=== PATIENT | male | born 1965 | race Caucasian/White ===

== ENCOUNTER 2017-11-12 14:01 | Emergency (ER) | payer SELFPAY ==
[~2017-11-12 14:01] MED LIST: Iopamidol 370 76% 100 ML VIAL ONE
[2017-11-12 14:46] LABS: #Basophils 0.1 thou/uL (0.0-0.2); #Eosinphils 0.4 thou/uL (0.0-0.7); #Lymphocytes 1.5 thou/uL (1.20-3.40); #Monocytes 0.4 thou/uL (0.11-0.59); #Neutrophils 3.2 thou/uL (1.40-6.50); %Eosinophils 7.1 % (0.0-10.0); %Lymphocytes 26.7 % (21.0-51.0); %Monocytes 6.5 % (0.0-10.0); %Neutrophils 58.7 % (42.0-75.0); Hemoglobin 13.3 g/dL (14.0-18.0); Mean Corpuscular Hemoglobin 29.3 pg (27.0-31.0); Mean Corpuscular Volume 88.9 fL (78.0-98.0); Mean Platelet Volume 5.8 fL (7.4-10.4); Platelet Count 304 thou/uL (130-400); RBC Distribution Width 12.8 % (11.5-14.5); Red Blood Cell (RBC) Count 4.55 mill/uL (4.70-6.10); White Blood Cell (WBC) Count 5.5 thou/uL (4.8-10.8)
[2017-11-12 14:53] LABS: INR-International Normal Ratio 0.9; Prothrombin Time 11.7 SEC (12.0-14.7)
[2017-11-12 15:04] LABS: ALT (SGPT) 28 U/L (8-55); AST (SGOT) 21 U/L (5-34); Albumin 4.4 g/dL (3.5-5.0); Alkaline Phosphatase 58 U/L (40-150); Anion Gap 13 mmol/L (10-20); BUN (Urea Nitrogen) 16 mg/dL (8.4-25.7); Bilirubin, Total 0.3 mg/dL (0.2-1.2); Calc. Creatinine Clearance 0 mL/min (70-130); Calcium 9.6 mg/dL (7.8-10.44); Carbon Dioxide 27 mmol/L (22-29); Chloride 105 mmol/L (98-107); Estimated GFR-MDRD 83; Globulin 3.1 g/dL (2.4-3.5); Glucose 90 mg/dL (70-105); Potassium 4.1 mmol/L (3.5-5.1); Protein, Total 7.5 g/dL (6.0-8.3); Sodium 141 mmol/L (136-145)
[2017-11-12] MEDS ORDERED: HYDROcodone/Acetaminophen 5/325 mg Tablet ONE (15:23)
--- NOTE | 2017-11-12 16:36 | CT ---
CHEST CT WITH CONTRAST ABDOMEN CT WITH CONTRAST PELVIC CT WITH CONTRAST LIMITED CT THORACIC AND LUMBAR SPINEE: Date: 11/12/17 HISTORY: Patient fell off truck 11 days ago. Now having rib pain. COMPARISON: None. TECHNIQUE: Chest, abdomen, and pelvic CT performed with IV contrast. Coronal reformatted images are submitted fo r interpretation. Limited CT of thoracic and lumbar spine. FINDINGS: CHEST CT: No mediastinal mass, lymphadenopathy, or hematoma. Heart size within normal limits. No pericardial fl uid. The thoracic aorta and abdominal aorta have normal caliber. No periaortic fat stranding. Portal vein is unremarkable. Gallbladder is surgically absent. Liver, spleen, pancreas, and adrenal glands have appropriate enhancement. No evidence of perihepatic or perisplenic free fluid. Symmetric enhancement of the kidneys. No evidence of obstructive uropathy. No gastrohepatic, retrocrural, or periportal lymphadenopathy. There are nonspecific mildly enlarged l eft lower quadrant mesenteric lymph nodes. Limited evaluation of the alimentary canal by lack of oral contrast. Gastric mucosa, duodenum, and mu ltiple normal caliber small bowel loops are noted. Ileocecal junction is normal. Scattered fecal mate rial in nondistended, nondilated colon. PELVIC CT: Mass effect upon the floor of the urinary bladder due to enlarged prostate gland. No pelvic mass, lym phadenopathy, free air, or free fluid. No evidence of a left or right rib fracture. Sternum is intact. Bony pelvis is also intact. LIMITED CT OF THORACIC AND LUMBAR SPINE: No evidence of fracture. Vertebral body heights are maintained. No malalignment. IMPRESSION: No post-traumatic change in the chest, abdomen, or pelvis. POS: CET
== END 2017-11-12 16:51 | disposition home or self-care (01) ==
LOC: MADERS 14:01
DX: S20.211A Contusion of right front wall of thorax, initial encounter (principal); F17.220 Nicotine dependence, chewing tobacco, uncomplicated; W01.0XXA Fall on same level from slipping, tripping and stumbling without subsequent striking against object, initial encounter
CPT/HCPCS: 36415; 71260; 74177; 80053; 85025; 85610

== ENCOUNTER 2017-11-28 12:56 | Emergency (ER) | payer SELFPAY ==
[~2017-11-28 12:56] MED LIST changes: -Iopamidol 370 76% 100 ML VIAL ONE; +Sodium Chloride Irrig Solution 250 ML BOT ONE
[2017-11-28] MEDS ORDERED: HYDROcodone/Acetaminophen 10/325 mg Tablet ONE (14:01)
[2017-11-28] MEDS ORDERED: Adacel (T-DAP) 0.5 ML VIAL ONE (15:20)
[2017-11-28] MEDS ORDERED: Bacitracin Zinc 1 Packet ONE (15:35)
== END 2017-11-28 15:42 | disposition home or self-care (01) ==
LOC: MADERS 12:56
DX: S61.211A Laceration without foreign body of left index finger without damage to nail, initial encounter (principal); F17.220 Nicotine dependence, chewing tobacco, uncomplicated; W26.9XXA Contact with unspecified sharp object(s), initial encounter
CPT/HCPCS: 12002; 90471; 90715